=== PATIENT | female | born 1970 | race Caucasian/White ===

== ENCOUNTER → 2024-03-12 07:32 | Outpatient (REF) | payer MEDICARE, OTHER, SELFPAY ==
[2024-03-12] MEDS: LEXISCAN 0.4 MG IV (09:47)
== END ==
LOC: RCS 07:32
PROVIDERS: ATTENDING PHYSICIAN Internal Medicine Cardiovascular Disease; FAMILY PHYSICIAN Internal Medicine
DX: I45.10 Unspecified right bundle-branch block (principal); I25.10 Atherosclerotic heart disease of native coronary artery without angina pectoris
CPT/HCPCS: 78452; 93017; A9500; J2785